=== PATIENT | female | born 1985 ===

== ENCOUNTER 2020-03-02 22:26 | Emergency (ER) | payer SELFPAY ==
[~2020-03-02] VITALS: Ht 149.9 cm; Wt 61.2 kg
[2020-03-02 22:49] VITALS: Ht 149.9 cm; Wt 61.2 kg
[2020-03-02 23:55] VITALS: BP 132/84
== END 2020-03-02 23:55 | disposition home or self-care (01) ==
LOC: ED 22:26
DX: M67.432 Ganglion, left wrist (principal)